=== PATIENT | female | born 1980 | race Caucasian/White ===

== ENCOUNTER 2023-05-21 15:28 | Emergency (ER) | payer MEDICAID ==
[~2023-05-21] VITALS: Ht 160 cm; Wt 58.4 kg
[2023-05-21 15:59] VITALS: BP 173/100; PULSE 103; RESP 16; TEMP 98.4; O2SAT 100
[2023-05-21] MEDS ORDERED: CLIN300C54 PO (16:10)
== END 2023-05-21 16:45 | disposition home or self-care (01) ==
LOC: ER 15:29
DX: K04.7 Periapical abscess without sinus (principal); Z88.0 Allergy status to penicillin; Z79.899 Other long term (current) drug therapy
CPT/HCPCS: 99283